=== PATIENT | female | born 1990 | race Caucasian/White ===

== ENCOUNTER 2021-03-31 13:29 | Outpatient (CLI) | payer OTHER | END 2021-03-31 14:35 | disposition home or self-care (01) | LOC: PRENATAL 13:29 | PROVIDERS: ATTEND Obstetrics & Gynecology Maternal & Fetal Medicine | DX: O35.0XX1 Maternal care for (suspected) central nervous system malformation in fetus, fetus 1 (principal); O35.3XX1 Maternal care for (suspected) damage to fetus from viral disease in mother, fetus 1; O98.512 Other viral diseases complicating pregnancy, second trimester; Z36.89 Encounter for other specified antenatal screening; Z3A.22 22 weeks gestation of pregnancy ==

== ENCOUNTER 2021-06-28 14:56 | Outpatient (CLI) | payer OTHER | END 2021-06-28 16:00 | disposition home or self-care (01) | LOC: PRENATAL 14:56 | PROVIDERS: ATTEND Obstetrics & Gynecology Maternal & Fetal Medicine | DX: O36.8199 Decreased fetal movements, unspecified trimester, other fetus (principal); O35.0XX0 Maternal care for (suspected) central nervous system malformation in fetus, not applicable or unspecified; O26.849 Uterine size-date discrepancy, unspecified trimester ==

== ENCOUNTER 2021-07-22 08:35 | Inpatient (IN) | payer OTHER ==
[~2021-07-22] VITALS: Ht 160 cm; Wt 78.5 kg
[2021-07-22] MEDS ORDERED: PROBIOTIC250 MG PO (10:08)
[2021-07-22] MEDS ORDERED: PRENATAL CAPLE1 EAC1 PO (10:08)
[2021-07-24] MEDS ORDERED: RHOGAM IM (14:02)
[2021-07-24] MEDS ORDERED: NAPR500T14 PO (14:02)
== END 2021-07-24 14:34 | disposition home or self-care (01) | DRG 807 ==
LOC: LDR 08:35 → SURG-SUITE 14:42
PROVIDERS: ADMIT Obstetrics & Gynecology; ATTEND Obstetrics & Gynecology
PROC: 10E0XZZ Delivery of Products of Conception, External Approach (ICD-10-PCS; principal; 2021-07-22)
PROC: 0KQM0ZZ Repair Perineum Muscle, Open Approach (ICD-10-PCS; 2021-07-22)
PROC: 4A1HXCZ Monitoring of Products of Conception, Cardiac Rate, External Approach (ICD-10-PCS; 2021-07-22)
DX: O70.1 Second degree perineal laceration during delivery (principal); Z37.0 Single live birth; Z3A.37 37 weeks gestation of pregnancy; Z20.822 Contact with and (suspected) exposure to COVID-19

== ENCOUNTER 2022-02-10 08:26 | Day surgery (SDC) | payer OTHER ==
[~2022-02-10] VITALS: Ht 160 cm; Wt 69.4 kg
[~2022-02-10 08:26] MED LIST: NAPR500T14 PO; PRENATAL CAPLE1 EAC1 PO; PROBIOTIC1 EAC4 PO; PROBIOTIC250 MG PO; RHOGAM IM
[2022-02-10] MEDS ORDERED: IBU600 MG PO (14:21)
[2022-02-10] MEDS ORDERED: ACETAMINOPHEN-1 EAC2 PO (14:21)
== END 2022-02-10 19:15 | disposition home or self-care (01) ==
LOC: CIR.AMB 08:26
PROVIDERS: ATTEND Obstetrics & Gynecology
DX: Z30.2 Encounter for sterilization (principal); N83.02 Follicular cyst of left ovary; N83.12 Corpus luteum cyst of left ovary; N83.8 Other noninflammatory disorders of ovary, fallopian tube and broad ligament; Z20.822 Contact with and (suspected) exposure to COVID-19; Z91.011 Allergy to milk products